=== PATIENT | male | born 1980 | race Caucasian/White ===

== ENCOUNTER 2019-10-21 08:41 | Emergency (ER) | payer MEDICAID ==
[~2019-10-21] VITALS: Ht 175.3 cm; Wt 65.0 kg
[2019-10-21] MEDS ORDERED: KETOROLAC 30MG/ML VIAL IM ONE (11:30)
[2019-10-21 12:15] VITALS: BP 142/87
== END 2019-10-21 12:28 | disposition home or self-care (01) ==
LOC: ER 08:41
DX: S13.9XXA Sprain of joints and ligaments of unspecified parts of neck, initial encounter (principal); S33.5XXA Sprain of ligaments of lumbar spine, initial encounter; M25.571 Pain in right ankle and joints of right foot; M79.604 Pain in right leg; V03.09XA Pedestrian with other conveyance injured in collision with car, pick-up truck or van in nontraffic accident, initial encounter; Y93.01 Activity, walking, marching and hiking; Y92.89 Other specified places as the place of occurrence of the external cause; Y99.8 Other external cause status
CPT/HCPCS: 29515; 71045; 72040; 73080; 73110; 73590; 73610; 73630; 96372; 99283; J1885